=== PATIENT | male | born 1970 | race Caucasian/White ===

== ENCOUNTER 2018-01-08 11:40 | Emergency (ER) | payer OTHER ==
[~2018-01-08] VITALS: Ht 177.8 cm; Wt 81.6 kg
[2018-01-08 11:56] VITALS: Ht 177.8 cm; Wt 81.6 kg
[2018-01-08 13:49] VITALS: BP 113/83
== END 2018-01-08 13:49 | disposition home or self-care (01) ==
LOC: ED 11:40
DX: S61.412A Laceration without foreign body of left hand, initial encounter (principal); W26.8XXA Contact with other sharp object(s), not elsewhere classified, initial encounter; Y93.89 Activity, other specified; Y92.89 Other specified places as the place of occurrence of the external cause; Y99.8 Other external cause status
CPT/HCPCS: 82962; 90715; J2001